=== PATIENT | female | born 1980 ===

== ENCOUNTER → 2018-09-10 | Day surgery (SDC) | payer OTHER | END | disposition home or self-care (01) | LOC: ADM 09-03 08:30 → CIR.AMB 08:30 | DX: N84.0 Polyp of corpus uteri (principal) ==

== ENCOUNTER 2018-10-07 07:00 | Outpatient (CLI) | payer OTHER | END 2018-10-07 10:00 | disposition home or self-care (01) | LOC: RX STUDY 07:00 | DX: N89.0 Mild vaginal dysplasia (principal) ==